=== PATIENT | male | born 1975 | race Caucasian/White ===

== ENCOUNTER 2018-08-27 12:42 | Day surgery (SDC) | payer OTHER ==
[~2018-08-27] VITALS: Ht 170.2 cm; Wt 62.6 kg
[~2018-08-27 12:42] MED LIST: ALLE180T33 PO; GLUC1CAP10 PO; IMIT6KIT SC; INDE80CA9 PO; MULT1TAB10 PO; NAPR-885 PO; OMEP40CA2 PO; PROPOFOL 200 MG/20 ML VIAL As Ordered ONE; TYLE500T78 PO; ZANT300T9 PO; ZONE1CAP PO
[2018-08-27] MEDS ORDERED: LIDOCAINE 2% INJ 100 MG/5 ML SDV (FOR ANES.) As Ordered ONE (12:43)
[2018-08-27] MEDS ORDERED: ePHEDrine SULFATE 25 MG/5 ML(5MG/ML) SYRINGE As Ordered ONE (12:47)
[2018-08-27] MEDS ORDERED: NS 1,000 ML IV ONE (13:30)
[2018-08-27] MEDS ORDERED: fentaNYL 100 MCG/2 ML INJECTION (J3010) As Ordered ONE (13:34)
--- NOTE | 2018-08-27 14:21 | ROOR ---
Patient Name: James Schaefer Procedure Date: 08/27/2018 1:59 PM Date of : 1975 Age: 42 Room: OP02 Gender: Male Note Status: Finalized Procedure: Upper GI endoscopy Indications: Surveillance for malignancy due to personal history of Summers's esophagus, Functional Dyspepsia, Eructation Providers: Moris COLMENARES MD Referring MD: ANTHONY HILL MD Requesting Provider: Medicines: Monitored Anesthesia Care Complications: No immediate complications. Procedure: Pre-Anesthesia Assessment: - The heart rate, respiratory rate, oxygen saturations, blood pressure, adequacy of pulmonary ventilation, and response to care were monitored throughout the procedure. The Endoscope was introduced through the mouth, and advanced to the second part of duodenum. The upper GI endoscopy was accomplished without difficulty. The patient tolerated the procedure well. Findings: The Z-line was variable and was found 39 cm from the incisors. This was biopsied with a cold forceps for evaluation to rule out Summers's Esophagus. The examined esophagus was normal. The stomach shows minimal gastritis . Biopsies were taken with a cold forceps for Helicobacter pylori testing. The examined duodenum was normal. Biopsies for histology were taken with a cold forceps for evaluation of celiac disease. Impression: - Normal esophagus. Z-line variable, 39 cm from the incisors. Biopsied. - Minimal gastritis, otherwise normal stomach. Biopsied. - Normal examined duodenum. Biopsied. Recommendation: - Use Prilosec (omeprazole) 20 mg PO BID indefinitely. - Await pathology results. - Telephone endoscopist for pathology results in 2 weeks. Moris Colmenares MD Moris COLMENARES MD 08/27/2018 2:21:09 PM This report has been signed electronically. Number of Addenda: 0 Note Initiated On: 08/27/2018 1:59 PM Estimated Blood Loss: Estimated blood loss: none.
[2018-08-27 14:40] VITALS: BP 126/81
== END 2018-08-27 14:55 | disposition home or self-care (01) ==
LOC: M OPP 12:42
PROVIDERS: ATTEND Internal Medicine Gastroenterology
DX: K22.8 Other specified diseases of esophagus (principal); K29.70 Gastritis, unspecified, without bleeding; K22.70 Barrett's esophagus without dysplasia; G47.33 Obstructive sleep apnea (adult) (pediatric); G43.909 Migraine, unspecified, not intractable, without status migrainosus; R06.83 Snoring; F17.220 Nicotine dependence, chewing tobacco, uncomplicated; Z79.899 Other long term (current) drug therapy; Z88.0 Allergy status to penicillin; Z88.1 Allergy status to other antibiotic agents; Z88.5 Allergy status to narcotic agent; Z98.890 Other specified postprocedural states; Z90.89 Acquired absence of other organs
CPT/HCPCS: 43239; 88305; J3010

== ENCOUNTER 2020-12-20 12:55 | Day surgery (SDC) | payer OTHER ==
[~2020-12-20] VITALS: Ht 170.2 cm; Wt 71.1 kg
[~2020-12-20 12:55] MED LIST changes: +DULO1CAP5 PO; +FAMO40TA3 PO; +GABA-282 PO; +NS 1,000 ML IV ONE; -OMEP40CA2 PO; +OMEP40CA97 PO; +PANT40TA29 PO; +PROP20TA72 PO; -PROPOFOL 200 MG/20 ML VIAL As Ordered ONE; +TIZA4CAP6 PO; +VITMTA PO
[2020-12-20] MEDS ORDERED: propofoL 200 MG/20 ML VIAL As Ordered ONE (14:42)
[2020-12-20] MEDS ORDERED: fentaNYL 100 MCG/2 ML INJECTION (J3010) As Ordered ONE (14:42)
--- NOTE | 2020-12-20 15:06 | ROOR ---
Patient Name: James Schaefer Procedure Date: 12/20/2020 2:49 PM Date of : 1975 Age: 44 Room: [facility] Gender: Male Note Status: Finalized Procedure: Upper GI endoscopy Indications: Surveillance for malignancy due to personal history of Summers's esophagus, Heartburn Providers: Moris Comlenares MD Referring MD: ANTHONY HILL MD Requesting Provider: Medicines: Monitored Anesthesia Care Complications: No immediate complications. Procedure: Pre-Anesthesia Assessment: - The heart rate, respiratory rate, oxygen saturations, blood pressure, adequacy of pulmonary ventilation, and response to care were monitored throughout the procedure. The Endoscope was introduced through the mouth, and advanced to the second part of duodenum. The upper GI endoscopy was accomplished without difficulty. The patient tolerated the procedure well. Findings: The Z-line was variable/Short stegment Barretts esophagus and was found 37 to 38 cm from the incisors. Smooth, no nodularity. Biopsies were taken with a cold forceps for histology. The exam of the esophagus was otherwise normal. The entire examined stomach was normal. The examined duodenum was normal. Impression: - Z-line variable/1 cm smooth segment barretts esophagus, from 37-38 cm from the incisors. Biopsied. - Normal stomach. - Normal examined duodenum. Recommendation: - Use Protonix (pantoprazole) 40 mg PO BID. - Use Pepcid (famotidine) 40 mg PO at bedtime. - If necessary: Use OTC Gaviscon 1-2 tabs as needed for breakthrough. Procedure Code(s): --- Professional --- 33067, Esophagogastroduodenoscopy, flexible, transoral; with biopsy, single or multiple Diagnosis Code(s): --- Professional --- R12, Heartburn K22.70, Summers's esophagus without dysplasia K22.8, Other specified diseases of esophagus CPT copyright 2019 [employer]. All rights reserved. The codes documented in this report are preliminary and upon accounts receivable collector review may be revised to meet current compliance requirements. Moris Colmenares MD Moris Colmenares MD 12/20/2020 3:06:20 PM Electronically signed by Moris Colmenares MD Number of Addenda: 0 Note Initiated On: 12/20/2020 2:49 PM Estimated Blood Loss: Estimated blood loss: none.
[2020-12-20 15:20] VITALS: BP 139/70
== END 2020-12-20 15:28 | disposition home or self-care (01) ==
LOC: M OPP 12:55
PROVIDERS: ATTEND Internal Medicine Gastroenterology
DX: K22.70 Barrett's esophagus without dysplasia (principal); R12 Heartburn; D13.0 Benign neoplasm of esophagus; K22.8 Other specified diseases of esophagus; G43.909 Migraine, unspecified, not intractable, without status migrainosus; G47.30 Sleep apnea, unspecified; F17.220 Nicotine dependence, chewing tobacco, uncomplicated; Z88.0 Allergy status to penicillin; Z88.1 Allergy status to other antibiotic agents; Z88.5 Allergy status to narcotic agent; Z79.899 Other long term (current) drug therapy; Z82.49 Family history of ischemic heart disease and other diseases of the circulatory system; Z80.8 Family history of malignant neoplasm of other organs or systems; Z80.1 Family history of malignant neoplasm of trachea, bronchus and lung; Z83.3 Family history of diabetes mellitus
CPT/HCPCS: 43239; 88305; J3010

== ENCOUNTER → 2022-01-30 | Outpatient (REF) ==
[~2022-01-30] MED LIST changes: -NS 1,000 ML IV ONE; +OMEP40CA4 PO; -OMEP40CA97 PO
== END ==
LOC: M PLAIMG 11:59
PROVIDERS: ATTEND Internal Medicine
DX: M47.812 Spondylosis without myelopathy or radiculopathy, cervical region (principal); M51.87 Other intervertebral disc disorders, lumbosacral region; M19.90 Unspecified osteoarthritis, unspecified site

== ENCOUNTER 2023-06-10 08:46 | Day surgery (SDC) | payer OTHER ==
[~2023-06-10] VITALS: Ht 170.2 cm; Wt 72.0 kg
[~2023-06-10 08:46] MED LIST changes: +BACL1TAB9 PO; +FAMO1TAB11; +LIDOCAINE 2% 100MG/5ML SDV (FOR ANES.) As Ordered ONE; +NS 1,000 ML IV ONE; +PROP80CA; +SUMA6INJ25; +XYZASOL2; +fentaNYL 100 MCG/2 ML INJECTION As Ordered ONE; +propofoL 200 MG/20 ML VIAL As Ordered ONE
[2023-06-10 11:03] VITALS: TEMP 96.7
[2023-06-10 11:27] VITALS: BP 133/73; O2SAT 100
== END 2023-06-10 11:36 | disposition home or self-care (01) ==
LOC: M OPP 08:46
PROVIDERS: ATTEND Surgery
DX: Z12.11 Encounter for screening for malignant neoplasm of colon (principal); Z12.12 Encounter for screening for malignant neoplasm of rectum; K64.9 Unspecified hemorrhoids; K22.89 Other specified disease of esophagus; K31.89 Other diseases of stomach and duodenum; R10.13 Epigastric pain; Z87.19 Personal history of other diseases of the digestive system; G47.30 Sleep apnea, unspecified; Z79.899 Other long term (current) drug therapy; F17.290 Nicotine dependence, other tobacco product, uncomplicated; Z88.0 Allergy status to penicillin; Z88.1 Allergy status to other antibiotic agents; Z88.5 Allergy status to narcotic agent
CPT/HCPCS: 43239; 45378; 88305; J3010